=== PATIENT | female | born 1995 | race Caucasian/White ===

== ENCOUNTER → 2020-04-26 13:44 | Outpatient (BNVA) | payer MEDICAID, SELFPAY | PROVIDERS: Family Provider Counselor Professional; Visit Provider Nurse Practitioner Women's Health | DX: Z34.90 Encounter for supervision of normal pregnancy, unspecified, unspecified trimester (principal) | CPT/HCPCS: 80053; 80307; 82950; 84315; 85027; 86592; 86762; 86803; 86850; 86900; 87077; 87086; 87186; 87340; 87806 ==

== ENCOUNTER → 2020-05-02 10:06 | Outpatient (BNVA) | payer MEDICAID, SELFPAY | PROVIDERS: Family Provider Counselor Professional; Visit Provider Obstetrics & Gynecology | DX: O99.280 Endocrine, nutritional and metabolic diseases complicating pregnancy, unspecified trimester (principal); E04.9 Nontoxic goiter, unspecified; Z12.4 Encounter for screening for malignant neoplasm of cervix | CPT/HCPCS: 84315; 84439; 84443; 87491; 87591; 88175 ==

== ENCOUNTER → 2020-05-23 00:01 | Outpatient (BNVA) | payer MEDICAID, SELFPAY | PROVIDERS: Family Provider Counselor Professional; Visit Provider Obstetrics & Gynecology | DX: O09.892 Supervision of other high risk pregnancies, second trimester (principal); Z3A.00 Weeks of gestation of pregnancy not specified | CPT/HCPCS: 80053; 84315; 87077; 87086; 87184 ==

== ENCOUNTER 2020-08-31 01:50 | Inpatient (IN) | payer MEDICAID, SELFPAY ==
[2020-08-31] VITALS (24 sets, daily range): BP systolic 106–143; BP diastolic 54–71; PULSE 71–104; RESP 17–18; TEMP 36.5–36.9; BMI 45.8
--- NOTE | 2020-08-31 02:05 | PC.NURSE ---
Patient delivered within 13 minutes of arrival. This RN at bedside with on mother's abdomen. doing well, first is 9. RT was called to OB2 for delivery but was not needed due to doing well. Bijal Hendrickson,RN at bedside attempted to do IV on patient x2, patient is refusing IV at this time. Dr. Magaña at bedside and this RN notified Dr Magaña in front of patient, that patient is refusing IV insertion. Dr. Magaña educated patient that due to being a multigravida, that she is at risk for a hemorrhage and that it is strongly recommended that she have an IV and pitocin administered. Pt is still refusing. 800 mcg of cytotec placed rectally at 0210 by this RN per Dr. Magaña verbal orders. Dr. Magaña would like a CBC on patient; this RN attempted 1 venous stick and was unsuccessful due to patient movement and patient stating, get that thing out of me now . Patient will not let RN attempt a second stick, but stated she would allow the laborer tan house. Conrado Cortez, RN notified to come attempt but is currently dealing with an emergent situation. Patient states, I will wait and do not want anyone else to try. RN explained to patient the purpose of the CBC to be drawn at this time, pt is still refusing.
--- NOTE | 2020-08-31 02:31 | PM.DELIVERY ---
Delivery Note: Date of delivery: August 31, 2020 Pre-Delivery Course: This is a 25-year-old G9, P6 at 40 weeks gestation who had insufficient care with 1-2 visits at [facility] and transferring to [facility] at 30 weeks gestation. She stated her reason for transfer of care was that her boyfriend wanted her to have a female doctor and also she spent too long in the waiting room at her last visit. She passed her glucose test. She was GBS positive. She refused Covid testing. She had several no-show visits after establishing with me. Delivery: The patient presented to labor and delivery 9 cm dilated with a bulging bag of water. Nursing called me at 0157 to give report on the patient and by 0204 they called back to say that the patient had already delivered in the bed. When I presented to the room the was crying in the warmer. There was a moderate amount of blood on the floor and in the bed. Nursing was giving fundal massage. The umbilical cord had been clamped and was hanging out of the patient's vagina. With gentle traction and a push from the patient the placenta was delivered grossly intact and normal to inspection. There were no lacerations. The patient was refusing IV placement since she is a tough stick . I discussed with her the risks of , especially her risk of hemorrhage due to grand multiparity. She said she understood and continued to decline the IV placement. We went ahead and placed 800 mcg of misoprostol rectally. She only had slight bleeding during the time I was in the room but again it appeared there was a moderate amount of blood already present, I am estimating 400 mL in the bed. Mother and infant were doing fine after delivery. A&P Assessment and plan (1) Insufficient care, delivered, current hospitalization: Status: Acute (2) Status post normal vaginal delivery: Routine care Status: Acute (3) Positive GBS test: She delivered imminently after arrival and there was no time for GBS prophylaxis. The infant will be monitored inpatient at least 48 hours. Status: Acute (4) Grand multiparity in labor and delivery, delivered: Status: Acute Coding Level of Care Code Acute Street Inspector for Kaitlin Jessica Diagnoses Insufficient care, delivered, current hospitalization O09.30 Status post normal vaginal delivery Positive GBS test B95.1 Grand multiparity in labor and delivery, delivered O80
[2020-08-31] MEDS: acetaminophen 325 mg Tablet 650 MG PO (03:30)
[2020-08-31] MEDS: hyDROXYzine 25 mg Capsule 50 MG PO (03:31)
[2020-08-31 05:52] LABS: Basophils # 0.1 10^3/uL (0.0-0.1); Basophils % 0.3 %; Eosinophils # 0.1 10^3/uL (0.0-0.8); Eosinophils % 0.5 %; Hematocrit 36.3 % (37.0-47.0); Hemoglobin 12.1 g/dL (11.5-15.3); Lymphocytes # 2.6 10^3/uL (0.8-4.8); Lymphocytes % 13.6 %; Mean Corpuscular HGB Conc 33.3 g/dL (30.0-36.0); Mean Corpuscular Volume 93.1 fL (81-99); Mean Platelet Volume 10.1 fL (7.4-10.4); Monocytes # 1.1 10^3/uL (0.2-0.9); Monocytes % 5.7 %; Neutrophils # 15.45 10^3/uL (1.8-7.7); Neutrophils % 79.2 %; Nucleated Red Blood Cells % 0 %; Platelet Count 298 10^3/cmm (130-400); Red Cell Distribution Width 13.4 % (12.1-15.1); White Blood Count 19.5 10^3/uL (4.0-10.0)
[2020-08-31] MEDS: ibuprofen 800 mg tablet PO ×3 (09:33→21:10)
[2020-08-31] MEDS: docusate sodium 100 mg Capsule PO ×2 (09:33→21:11)
[2020-08-31] MEDS: prenatal vitamin Capsule 1 CAP PO (09:33)
[2020-08-31 11:15] LABS: Amphetamines Screen Urine Negative (Negative); Barbiturates Screen Urine Negative (Negative); Benzodiazepines Screen Urine Negative (Negative); Cocaine Screen Urine Negative (Negative); Opiate Screen Urine Negative (Negative); PCP Screen Urine Negative (Negative); THC Screen Urine Negative (Negative)
[2020-08-31] MEDS: lanolin oint 7 gm 1 APPLIC TOPICAL (11:55)
[2020-08-31 18:14] LABS: Hematocrit 33.7 % (37.0-47.0); Hemoglobin 11.1 g/dL (11.5-15.3); Mean Corpuscular HGB Conc 32.9 g/dL (30.0-36.0); Mean Corpuscular Hemoglobin 30.8 pg (28.0-34.0); Mean Corpuscular Volume 93.6 fL (81-99); Mean Platelet Volume 9.9 fL (7.4-10.4); Platelet Count 252 10^3/cmm (130-400); Red Cell Distribution Width 13.2 % (12.1-15.1); White Blood Count 15.1 10^3/uL (4.0-10.0)
[2020-09-01] VITALS (9 sets, daily range): BP systolic 96–121; BP diastolic 54–64; PULSE 75–83; RESP 16–17; TEMP 35.7–36.6; O2SAT 98–99
[2020-09-01] MEDS: prenatal vitamin Capsule 1 CAP PO (08:48)
[2020-09-01] MEDS: ibuprofen 800 mg tablet PO ×3 (08:48→20:12)
[2020-09-01] MEDS: docusate sodium 100 mg Capsule PO ×2 (08:48→17:25)
[2020-09-01] MEDS: benzocaine-menthol 78 gm Canister 1 SPRAY TOPICAL (08:58)
[2020-09-02 03:55] VITALS: RESP 16
[2020-09-02 04:04] VITALS: BP 136/64; PULSE 90; TEMP 36.1
[2020-09-02] MEDS: docusate sodium 100 mg Capsule PO (09:53)
[2020-09-02] MEDS: prenatal vitamin Capsule 1 CAP PO (09:53)
[2020-09-02] MEDS: ibuprofen 800 mg tablet PO (09:53)
--- NOTE | 2020-09-02 10:29 | PM.OBGYDC ---
Discharge Providers CLOTHING TRADES WORKERS Date of Admission: 08/31/20 01:50 Date of Discharge: 09/02/20 Attending Provider at Admission: Bibiana Magaña MD Attending Provider at Discharge: Bibiana Magaña MD Primary Care Provider: Bibiana Magaña MD Diagnoses at Discharge Discharge Diagnosis (1) Insufficient care, delivered, current hospitalization: Status: Acute (2) Status post normal vaginal delivery: Status: Acute (3) Positive GBS test: Status: Acute (4) Grand multiparity in labor and delivery, delivered: Status: Acute Reason for Visit Reason for Visit: CONTRACTIONS Hospital Course Hospital Course This is a 25-year-old G9 now P7 who had a normal spontaneous vaginal delivery. After delivery she did well. She was ambulating, tolerating a regular diet, had essentially no pain and had decreased vaginal bleeding. She was comfortable with discharge home. Information Peripartum Data: Infant Delivery Method: Vaginal Physical Exam Const: COMMON NORMALS: no acute distress HENMT: COMMON NORMALS: normocephalic and atraumatic HEAD & SCALP: normocephalic and atraumatic Eye: COMMON NORMALS: Equal, round and reactive pupils present and EOMs intact bilaterally PUPIL: Yes Equal, round and reactive pupils present Chest: COMMONS NORMALS: normal inspection of the chest Resp: COMMON NORMALS: normal respiratory effort and clear to auscultation bilaterally AUSCULTATION: clear to auscultation bilaterally Cardio: COMMON NORMALS: regular rate and regular rhythm RATE: regular rate RHYTHM: regular rhythm GI: COMMON NORMALS: Soft to palpation (Fundus firm U- 2) and non-tender PALPATION: Yes Soft to palpation (Fundus firm U- 2) Extremity: GENERAL: No calf tenderness and Yes edema (Nonpitting) Discharge Data Vitals: Last Vital Signs Temp 97.0 F L 09/02/20 04:04 Pulse 90 09/02/20 04:04 Resp 16 09/02/20 03:55 BP 136/64 09/02/20 04:04 Pulse Ox 99 09/01/20 21:46 Discharge Plan Discharge Patient Disposition: Home Condition: Stable Prescriptions: New Vangie 0.35 mg tablet 0.35 mg PO DAILY Qty: 28 RF: 13 Continued prenat.vits,fred,cyp-jycf-liaxb Tablet 1 tab PO DAILY RF: 0 acetaminophen [Tylenol] 325 mg capsule 325 mg PO QID PRN (Reason: Pain) RF: 0 cephalexin 500 mg capsule 500 mg PO BID 7 Days Qty: 14 RF: 0 Discharge Orders: Discharge Order (Routine); Ordered 09/02/20 Ordered By: Bibiana Magaña Referrals: Bibiana Magaña MD [Primary Care Provider] - (Your 4 week appointment has been scheduled for 09/29/2020 at 10:[address] Magaña.) Discharge Diet: Usual diet Discharge Activity: Limit activity as instructed Patient Instructions: Vaginal Delivery (DC), Pre-eclampsia and Eclampsia (DC), Bleeding (DC), OB Discharge Report, OB Food/Drug Interaction Guide, OB Home Care, OB Proud Parent Packet Discharge Attestations CLOTHING TRADES WORKERS Time Spent in Discharge Care*: less than 30 min Coding Level of Care Code Acute Active Directory Systems Administrator for Chg Fwd Diagnoses Insufficient care, delivered, current hospitalization O09.30 Status post normal vaginal delivery Positive GBS test B95.1 Grand multiparity in labor and delivery, delivered O80
[2020-09-02 11:17] VITALS: TEMP 36.1
[2020-09-02 11:18] VITALS: BP 130/70; PULSE 84
[2020-09-02 11:25] VITALS: RESP 16; TEMP 36.9
[2020-09-02 11:38] VITALS: RESP 16; TEMP 36.9
== END 2020-09-02 11:40 | disposition home or self-care (01) | DRG 807 ==
PROVIDERS: Admitting Provider Family Medicine; Family Provider Counselor Professional; PCP Family Medicine; Visit Provider Family Medicine
DX: O99.824 Streptococcus B carrier state complicating childbirth (principal); Z37.0 Single live birth; Z3A.40 40 weeks gestation of pregnancy
CPT/HCPCS: 36415; 59025; 59409; 80306; 85025; 85027; 98960; 99211

== ENCOUNTER 2022-09-07 07:41 | Outpatient (CLI) | payer MEDICAID, SELFPAY ==
--- NOTE | 2022-09-07 08:02 | US_ITS ---
WS: [id number] OBSTETRICAL ULTRASOUND COMPLETE HISTORY: 25 WEEKS GESTATION COMPARISON: None available. Single intrauterine gestation in breech presentation. Cervix is Closed and normal length. Cervical length is 5.0 cm. Normal amount of amniotic fluid surrounds the fetus. Placenta: Anterior. Placenta is low-lying and extends within 8 mm of the cervical os. Placenta grade 0 Heart: 126 BPM. Four chambers are identified. Unremarkable outflow tracts is imaged. Anatomy: Intracranial structures and spine are normal. kidneys, stomach and urinary bladd er are unremarkable. Abdominal wall, three-vessel cord and cord insertion site are normal. 4 extremities are present. profile: Unremarkable. Gender: Male. measurements: BPD = 5.6 cm = 23w1d HC = 20.9 cm = 23w0d AC = 20.3 cm = 24w6d FL = 4.2 cm = 23w4d EFW: 668 g. Biometry is internally concordant. AGA by ultrasound: 23w5d CHLOÉ by ultrasound: 12/30/2022 US/US OB >= 14 weeks fetus [id number] IMPRESSION: 1. Single intrauterine gestation of 23w5d with an CHLOÉ of 12/30/2022. 2. Unremarkable screening survey of anatomy. 3. Low-lying anterior placenta. Recommend reevaluation during late second or e venkatesh third trimester.
== END 2022-09-07 07:42 | disposition home or self-care (01) ==
PROVIDERS: PCP Family Medicine; Visit Provider Family Medicine
DX: O32.1XX0 Maternal care for breech presentation, not applicable or unspecified (principal); Z3A.25 25 weeks gestation of pregnancy; O44.42 Low lying placenta NOS or without hemorrhage, second trimester
CPT/HCPCS: 76805

== ENCOUNTER 2022-12-24 12:16 | Inpatient (IN) | payer MEDICAID, SELFPAY ==
[2022-12-24] VITALS (24 sets, daily range): BP systolic 106–135; BP diastolic 55–83; PULSE 64–81; RESP 16–17; TEMP 36.3–36.7; BMI 37.8
[2022-12-24] MEDS: ampicillin 2,000 MG in sodium chloride 0.9% (plus) 50 ML 100 MG IV (13:00)
[2022-12-24] MEDS: dextrose 5%-lactated ringers 1,000 ML 125 ML IV (13:01)
[2022-12-24 15:12] LABS: Basophils % 0.4 %; Eosinophils # 0.1 10^3/uL (0.0-0.8); Eosinophils % 0.5 %; Hematocrit 39.4 % (37.0-47.0); Hemoglobin 12.7 g/dL (11.5-15.3); Lymphocytes # 2.5 10^3/uL (0.8-4.8); Lymphocytes % 22.2 %; Mean Corpuscular HGB Conc 32.2 g/dL (30.0-36.0); Mean Corpuscular Hemoglobin 32.6 pg (28.0-34.0); Mean Corpuscular Volume 101.3 fl (81-99); Mean Platelet Volume 10.7 fL (7.4-10.4); Monocytes # 0.8 10^3/uL (0.2-0.9); Neutrophils # 7.66 10^3/uL (1.8-7.7); Neutrophils % 69.3 %; Nucleated Red Blood Cells % 0 %; Platelet Count 247 10^3/cmm (130-400); Red Blood Count 3.89 10^6/uL (4.1-5.3); Red Cell Distribution Width 15.7 % (12.1-15.1)
[2022-12-24] MEDS: lactated ringers 1,000 ML 999 ML IV (16:38)
[2022-12-24] MEDS: ampicillin 1,000 MG in sodium chloride 0.9% (plus) 50 ML 100 MG IV (17:02)
--- NOTE | 2022-12-24 17:02 | PM.OPHPUD ---
Labor & Delivery H&P Update Date of Procedure: December 24, 2022 Date H&P Performed: 12/24/22 Admission Diagnosis: SROM IUP at 39 weeks gestation Grand multiparity GBS positive
--- NOTE | 2022-12-24 17:03 | P.PN_ITS ---
Subjective Subjective: Pt is not really feeling the contractions much. She has been on the birthing ball and continues to leak fluid. She has good movement. Vitals/I&O/Wt Last Vital Signs Pulse 69 12/24/22 16:42 Resp 16 12/24/22 12:14 BP 130/75 12/24/22 16:42 O2 Del Method Room Air 12/24/22 12:15 Weight last 48 hrs Weight 79.379 kg Data 12/24/22 12:30 A&P Assessment and plan (1) Non-reassuring heart rate or rhythm affecting mother: I checked pt and she was found to have a forebag. This was ruptured using an amnihook. She was 5cm/50%/-1 station with head well applied. Not any significant change from prior. Due to her multiparous, extremely soft cervix, her exams have been inconsistent. Shortly after, with her position change we lost heart tones. It took multiple attempts at repositioning and starting fluid bolus for heart tones to come up from 60's to 90's and eventually 110's. Nursing was having to hold the monitor in place. I recommended applying a scalp electrode but the patie nt immediately refused. I explained that we cannot ensure babies safety and viability if we cannot accurately monitor FHT. I explained that the risk of FHT going down again was significant and there was a good possiblity of emergency c- section if that happened. Pt continued to refuse the FSE. Pts mother tried to tell her to trust us and allow us to place the FSE for babies sake, but pt continued to refuse. I informed pt that if I cannot monitor FHT accurately then I cannot guarantee babies safety or viability. She still refused. Pt was consented for emergent with bilateral tubal ligation - she still wants her tubal even if we end up with an emergent delivery. Shameka, Karma, Helenalina Butler all were present in the room (2) Spontaneous rupture of amniotic membranes: essentailly no cervical change in hours, will start pitocin. (3) with 39 completed weeks gestation: (4) Positive GBS test: she is s/p 1 dose of abx. Attestations Medical Necessity Statement*: expectant management Coding Level of Care Code Acute Code for Chg Fwd Diagnoses Non-reassuring heart rate or rhythm affecting mother O36.8390 Spontaneous rupture of amniotic membranes with 39 completed weeks gestation Z3A.39 Positive GBS test B95.1
--- NOTE | 2022-12-24 17:54 | PM.DELIVERY ---
Delivery Note: Date of delivery: December 24, 2022 Procedure: Normal spontaneous vaginal delivery Estimated blood loss (mL): 250 Pre-Delivery Course: The patient had routine care at [facility]. She was blood type AB+, antibody negative, hepatitis B nonreactive, hepatitis C nonreactive, HIV nonreactive, rubella immune, GC chlamydia negative, RPR nonreactive, urine drug screen was positive for marijuana, she refused Pap smear, she passed her 1 hour glucose tolerance test, she was GBS positive. Other than grandmultiparity there were no complications during the . Delivery: This is a 27-year-old G9, P7 at 39 weeks 3 days gestation who presented to labor and delivery with spontaneous rupture of membranes. She was noted to be GBS positive and was started on ampicillin protocol. She received 1 dose of ampicillin prior to delivery. She declined epidural for pain management. After several hours her labor had not progressed and she really was not feeling the contractions much. I checked her and ruptured a fore bag. Shortly thereafter she had a normal spontaneous vaginal delivery of a viable male infant weight 3080 g, 6 pounds 13 ounces, Apgars 9 and 9 over an intact perineum. The infant was suctioned at delivery and placed on the mother's chest. The cord was clamped and cut. The placenta was delivered grossly intact and normal to inspection. There were no lacerations. Mother and were doing well after delivery. History History History 7 Term 5 1 Miscarriages/Ectopic 0 Living Children 6 A&P Assessment and plan (1) Status post normal vaginal delivery: (2) Encounter for sterilization: Patient wishes to proceed with bilateral tubal ligation. We will check with surgery and see if this can be scheduled for the a.m. (3) Marijuana use: Coding Level of Care Code Acute Code for Chg Fwd Diagnoses Status post normal vaginal delivery Encounter for sterilization Z30.2 Marijuana use F12.90
[2022-12-24 20:46] LABS: Amphetamines Screen Urine Negative (Negative); Barbiturates Screen Urine Negative (Negative); Benzodiazepines Screen Urine Negative (Negative); Cocaine Screen Urine Negative (Negative); Opiate Screen Urine Negative (Negative); PCP Screen Urine Negative (Negative); THC Screen Urine Positive (Negative)
[2022-12-24] MEDS: ibuprofen 800 mg tablet PO (21:27)
[2022-12-25] VITALS (16 sets, daily range): BP systolic 111–138; BP diastolic 56–79; PULSE 61–82; RESP 16–18; TEMP 36.6–37.1; O2SAT 98–100
--- NOTE | 2022-12-25 05:52 | PC.NURSE ---
Koki reports that she lives with her mother and ex-. Koki reports that her mother and ex- are currently in a relationship with one another and plan to be .
--- NOTE | 2022-12-25 06:04 | PC.NURSE ---
RN attempted to get hemagram at this time patient states I will not be getting a blood draw because no one can hit my veins and they already tried yesterday and blew the only good ones I had
--- NOTE | 2022-12-25 06:46 | ANES.PREANE2 ---
Pre-Anesthetic Assessment Height/Weight: Height 1.45 m Weight 79.379 kg Temp Pulse Resp BP Pulse Ox O2 Del Method 98.1 F 61 16 115/56 100 Room Air 12/24/22 23:40 12/25/22 04:42 12/25/22 04:42 12/25/22 04:42 12/25/22 04:42 12/25/22 04:42 Preop Diagnosis: undesired fertility Operation Date: 12/25/22 07:00 Proposed Procedures p Post Bilateral Tubal Ligation(Bilateral) - Bibiana Magaña MD Familial anesthetic complications: awareness at 6 years old for tonsil procedure per patient Was Beta Stone taken within 24 hours: N/A Was Clonidine taken within 24 hours: N/A Social No alcohol and No tobacco Cannabis use Exam alert, oriented x 3 and clear to auscultation bilaterally Airway Submandibular: within normal limits Cervical ROM: within normal limits Mallampati: Class II Dentition: full Pulmonary Asthma CV/HEM None reported None reported Hepatic None reported GI None reported Metabolic None reported Musc/skel None reported Neuropsych Anxiety and Depression Anesthetic Plan ASA status: 2 Anesthesia: General Medications/Allergies Home Medications Medication Instructions Recorded Confirmed Last Taken Type prenat.vits,fred,bvz-lobh-esces 1 tab PO DAILY 04/26/20 12/24/22 08/29/20 History Allergies Allergy/AdvReac Type Severity Reaction Status Date / Time bee venom protein (honey bee) Allergy Unknown Verified 09/01/20 07:59 Current Medications Generic Name Dose Route Start Last Admin Trade Name Freq PRN Reason Stop Dose Admin Ibuprofen 800 mg 12/24/22 21:00 12/24/22 21:27 Ibuprofen 800 Mg Tablet PO 800 mg TID BERNIE Administration PFSH Anesthesia Medical History (Updated 12/24/22 @ 17:58 by Bibiana Magaña MD) Generalized anxiety disorder Major depressive disorder, recurrent, in full remission No pertinent past medical history neghx: htn,dm,thyroid,dvt/pe,herpes Denies past partner herpes hx Post traumatic stress disorder Surgical History History of tonsillectomy Family History Mother Hypertension Stroke Social History Smoking and tobacco status: former smoker Quit status (tobacco): has quit using tobacco Year quit tobacco: 12/2019 Second hand smoke exposure: No Smoking risk assessment/counseling performed?: Yes Alcohol intake: current Alcohol intake frequency: few times a month Substance/Drug Use: never Additional social history: - Tobacco use: Former; Quit in December 2019 Alcohol use: Social before Drug use: Denies Female Reproductive History : 9 Data Anesthesia 12/24/22 12:30 Short CBC 12/24/22 Range/Units 12:30 WBC 11.0 H (4.0-10.0) 10^3/uL Hgb 12.7 (11.5-15.3) g/dL Hct 39.4 (37.0-47.0) % MCV 101.3 H (81-99) fl Plt Count 247 (130-400) 10^3/cmm Neut % (Auto) 69.3 % Neut # (Auto) 7.66 (1.8-7.7) 10^3/uL Cardiac Studies: No Data to Display
[2022-12-25] MEDS: famotidine 20 mg/2 mL INJ IVP (06:52)
[2022-12-25] MEDS: metoclopramide 5 mg/mL SDV 2 mL 10 MG IVP (06:52)
[2022-12-25] MEDS: citric acid-sodium citrate 30 mL UDC PO (06:52)
--- NOTE | 2022-12-25 08:17 | PM.OP ---
Operative Report Date of procedure: December 25, 2022 Pre-op diagnosis: Preop Diagnosis undesired fertility Procedure done: bilateral tubal ligation Pathology: Segments of right and left fallopian tubes Surgeon: Bibiana Magaña Estimated blood loss (mL): 1 IV fluids (mL): 900 Complications: none Procedure: After informed consent, the patient was taken to the OR where general anesthesia was administered. She was prepped and draped in normal sterile fashion in dorsal supine position. A curvilinear infraumbilical skin incision was made just below the umbilicus. This was carried through to the underlying layer of fascia bluntly using a hemostat. The fascia was then grasped with Allis clamps and entered sharply using the Metzenbaums. The peritoneum was then entered bluntly. The left fallopian tube was grasped with a Chuck and brought into the operative field. Fimbria were identified. A distal portion of the tube was ligated and excised. Segment of the tube was sent to pathology. Tubal ostia were visualized. The cut portions of the tube were coagulated using the Bovie and then returned to the abdomen. The right fallopian tube was then grasped with a [place] and brought into the operative field, fimbria were identified. A midportion of the tube was ligated and excised. Segment of the tube was sent to pathology. The cut portions of the tube were coagulated using the Bovie and then returned to the abdomen. The peritoneum and fascia was then reapproximated using 0 Vicryl in a running fashion. The skin was then reapproximated using 4-0 Vicryl in a running fashion. Steri-Strips and a pressure bandage were applied and patient went to recovery in good condition. Sponge instrument and needle counts were correct
--- NOTE | 2022-12-25 14:52 | ANE.PACU2 ---
Inpatient post-anesthesia follow up: Airway intact: Yes Vital signs: Temperature 97.9 F Pulse Rate 82 Respiratory Rate 16 Blood Pressure 133/73 Pulse Oximetry 100 Oxygen Delivery Me thod Room Air Oxygen Flow Rate Fraction of Inspir ed Oxygen Hydration adequate: Yes Nausea and vomiting: No Pain level: 1 Mental status: Baseline
[2022-12-25] MEDS: ibuprofen 800 mg tablet PO ×2 (15:28→22:19)
--- NOTE | 2022-12-25 17:16 | PM.PN ---
Subjective Subjective: Doing well. Average vaginal bleeding. Vitals/I&O/Wt Last Vital Signs Temp 97.9 F 12/25/22 08:15 Pulse 82 12/25/22 08:45 Resp 16 12/25/22 08:45 BP 133/73 12/25/22 08:45 Pulse Ox 100 12/25/22 08:45 O2 Del Method Room Air 12/25/22 08:45 12/25/22 12/25/22 12/25/22 06:59 14:59 22:59 Intake Total 50 / 50 Output Total 0 / 0 Balance 50 / 50 Weight last 48 hrs Weight 79.379 kg Physical Exam Narrative: Alert and oriented, sitting up in bed, heart regular rate and rhythm, lungs clear to auscultation bilaterally, abdomen is soft with appropriate postoperative tenderness, dressing is clean dry and intact, extremities have some edema but no calf tenderness Data 12/24/22 12:30 A&P Assessment and plan (1) Status post normal vaginal delivery: Routine care (2) Marijuana use: (3) Encounter for sterilization: Postop days 0 bilateral tubal ligation (4) Grand multiparity in labor and delivery, delivered: (5) Positive GBS test: Attestations Medical Necessity Statement*: Routine postop and care Coding Level of Care Code Acute Code for Chg Fwd Diagnoses Status post normal vaginal delivery Marijuana use F12.90 Encounter for sterilization Z30.2 Grand multiparity in labor and delivery, delivered O80 Positive GBS test B95.1
[2022-12-25] MEDS: HYDROcodone-acetaminophen 5-325 mg Tablet PO (19:47)
[2022-12-25] MEDS: docusate sodium 100 mg Capsule PO (20:15)
[2022-12-25 20:45] LABS: Hematocrit 32.3 % (37.0-47.0); Hemoglobin 10.9 g/dL (11.5-15.3); Mean Corpuscular HGB Conc 33.7 g/dL (30.0-36.0); Mean Corpuscular Volume 97.9 fl (81-99); Mean Platelet Volume 9.9 fL (7.4-10.4); Platelet Count 248 10^3/cmm (130-400); Red Cell Distribution Width 13.2 % (12.1-15.1); White Blood Count 11.2 10^3/uL (4.0-10.0)
[2022-12-26 04:00] VITALS: BP 133/79; PULSE 72; RESP 18; TEMP 36.8; O2SAT 98
[2022-12-26] MEDS: HYDROcodone-acetaminophen 5-325 mg Tablet PO (07:55)
[2022-12-26 10:45] VITALS: BP 116/71; PULSE 68; RESP 16; TEMP 36.9; O2SAT 100
[2022-12-26] MEDS: docusate sodium 100 mg Capsule PO (12:18)
[2022-12-26] MEDS: prenatal vitamin Capsule 1 CAP PO (12:18)
[2022-12-26] MEDS: ibuprofen 800 mg tablet PO (13:27)
[2022-12-26 16:47] VITALS: BP 122/73; PULSE 79; RESP 16; TEMP 36.6; O2SAT 99
--- NOTE | 2022-12-26 17:22 | P.DS_ITS ---
Discharge Providers Date of Admission: 12/24/22 12:16 Date of Discharge: December 26, 2022 Attending Provider at Admission: Bibiana Magñaa MD Attending Provider at Discharge: Bibiana Magaña MD Primary Care Provider: Bibiana Magaña MD Diagnoses at Discharge Discharge Diagnosis (1) Status post normal vaginal delivery: Status: Acute (2) Marijuana use: Status: Acute (3) Encounter for sterilization: Status: Acute (4) Grand multiparity in labor and delivery, delivered: Status: Acute (5) Positive GBS test: Status: Acute Reason for Visit Reason for Visit: poss srom Hospital Course Hospital Course This is a 27-year-old G9 now P8 who was admitted with spontaneous rupture of membranes. She had a normal spontaneous vaginal delivery of viable male . On day #1 she underwent a bilateral tubal ligation. On day #2 she was ambulating, tolerating a regular diet, had decent pain control and average vaginal bleeding. DFS was consulted due to not having custody of all but one of her children and marijuana use during . Reportedly the case went to the molasses and caramel operator who declined to take the infant despite the recommendation from the DFS social insurance specialist. Mother is being discharged home with the infant. Physical Exam Narrative: Alert and oriented, walking around the room, heart regular rate and rhythm, lungs clear to auscultation bilaterally, abdominal incision is clean dry and intact, Steri-Strips are falling off, there is some purple bruising at the site, abdomen has appropriate postoperative tenderness, extremities have no edema and no calf tenderness Discharge Data Studies Completed and Pending Completed Studies During Hospitalization Category Date Time Status Pathology: Surgical [PTH] Routine Pth 12/25/22 09:55 Completed Laboratory Results WBC 11.2 10^3/uL (4.0-10.0) H 12/25/22 20:25 RBC 3.30 10^6/uL (4.1-5.3) L 12/25/22 20:25 Hgb 10.9 g/dL (11.5-15.3) L 12/25/22 20:25 Hct 32.3 % (37.0-47.0) L 12/25/22 20:25 MCV 97.9 fl (81-99) 12/25/22 20:25 MCH 33.0 pg (28.0-34.0) 12/25/22 20:25 MCHC 33.7 g/dL (30.0-36.0) 12/25/22 20:25 RDW 13.2 % (12.1-15.1) 12/25/22 20:25 Plt Count 248 10^3/cmm (130-400) 12/25/22 20:25 MPV 9.9 fL (7.4-10.4) 12/25/22 20:25 Neut % (Auto) 69.3 % 12/24/22 12:30 Lymph % (Auto) 22.2 % 12/24/22 12:30 [place] % (Auto) 7.0 % 12/24/22 12:30 Eos % (Auto) 0.5 % 12/24/22 12:30 Baso % (Auto) 0.4 % 12/24/22 12:30 Neut # (Auto) 7.66 10^3/uL (1.8-7.7) 12/24/22 12:30 Lymph # (Auto) 2.5 10^3/uL (0.8-4.8) 12/24/22 12:30 [place] # (Auto) 0.8 10^3/uL (0.2-0.9) 12/24/22 12:30 Eos # (Auto) 0.1 10^3/uL (0.0-0.8) 12/24/22 12:30 Baso # (Auto) 0.0 10^3/uL (0.0-0.1) 12/24/22 12:30 Nucleated RBC % (auto) 0 % 12/24/22 12:30 Nucleated RBCs # 0.0 /100WBC 12/24/22 12:30 Urine Opiates Screen Negative ng/mL (Negative) 12/24/22 20:21 Ur Barbiturates Screen Negative ng/mL (Negative) 12/24/22 20:21 Ur Phencyclidine Scrn Negative ng/mL (Negative) 12/24/22 20:21 Ur Amphetamines Screen Negative ng/mL (Negative) 12/24/22 20:21 U Benzodiazepines Scrn Negative ng/mL (Negative) 12/24/22 20:21 Urine Cocaine Screen Negative ng/mL (Negative) 12/24/22 20:21 U Marijuana (THC) Screen Positive ng/mL (Negative) H 12/24/22 20:21 Vitals Last Vital Signs Temp 97.9 F 12/26/22 16:47 Pulse 79 12/26/22 16:47 Resp 16 12/26/22 16:47 BP 122/73 12/26/22 16:47 Pulse Ox 99 12/26/22 16:47 O2 Del Method Room Air 12/26/22 16:47 Discharge Plan Discharge Patient Disposition: Home Condition: Stable Prescriptions: New ibuprofen 800 mg Tablet 800 mg PO TID PRN (Reason: Abdominal Discomfort) Qty: 40 0RF hydrocodone-acetaminophen 5-325 mg Tablet 1 - 2 tab PO Q6H PRN (Reason: Moderate To Severe Pain) Qty: 6 0RF Continued prenat.vits,fred,lft-zmog-lcfbr Tablet 1 tab PO DAILY Discharge Orders: Discharge Order (Routine); Ordered 12/26/22 Ordered By: Bibiana Magaña Discharge Diet: Usual diet Discharge Activity: Limit activity as instructed Patient Instructions: Depression (DC), Bleeding (DC), Preeclampsia and Eclampsia After Delivery (GEN), Tubal Ligation (DC), OB Discharge Report, OB Food/Drug Interaction Guide, OB Care at Home, Opioid Safety, OB Vaginal Deliveries Discharge Attestations Time Spent in Discharge Care*: less than 30 min Quality Metrics Clinical Quality Measures [ No reported AMI, CVA or VTE this stay] Coding Level of Care Code Acute Code for Chg Fwd Diagnoses Status post normal vaginal delivery Marijuana use F12.90 Encounter for sterilization Z30.2 Grand multiparity in labor and delivery, delivered O80 Positive GBS test B95.1
[2022-12-26 18:45] VITALS: BP 122/73; PULSE 79; RESP 16; TEMP 36.6; O2SAT 99
== END 2022-12-26 18:50 | disposition home or self-care (01) | DRG 798 ==
LOC: OPOB 12-25 07:06 → OBGYN 12-25 07:07
PROVIDERS: Admitting Provider Family Medicine; PCP Family Medicine; Visit Provider Family Medicine
PROC: 0UB70ZZ Excision of Bilateral Fallopian Tubes, Open Approach (ICD-10-PCS; CPT 58605; principal; 2022-12-25 07:00)
DX: O99.824 Streptococcus B carrier state complicating childbirth (principal); Z37.0 Single live birth; O76 Abnormality in fetal heart rate and rhythm complicating labor and delivery; O99.324 Drug use complicating childbirth; F12.90 Cannabis use, unspecified, uncomplicated; Z3A.39 39 weeks gestation of pregnancy; Z30.2 Encounter for sterilization
CPT/HCPCS: 36415; 59025; 59409; 80306; 83986; 85025; 85027; 88302; 96374; 99211; J0290; J0330; J1100; J1885; J2370; J2405; J2704; J2765; J3010; J3490; J7120; J7121